=== PATIENT | female | born 1995 | race Hispanic/Latino ===

== ENCOUNTER 2022-04-02 23:53 | Emergency (ER) | payer SELFPAY ==
--- NOTE | ~2022-04-02 | US_ITS ---
US OB <=14 wk fetus w TV DATE: 04/03/2022 03:36 INDICATION: Vaginal bleeding in 4 week gravid patient TECHNIQUE: Real-time imaging via transabdominal and transvaginal approaches COMPARISON: None FINDINGS: The uterus measures approximately 9.3 centers height, 7.2 cm transverse and 4.8 cm AP dimen fabienne. The central endometrial echo complex measures 12 mm AP dimension. No intrauterine gestational sac is detected. The ovaries appear unremarkable. No significant abnormal pelvic fluid collection is noted. IMPRESSION: Prominent central endometrial echo; no intrauterine gestational sac is identified Ectopic is not excluded. Clinical correlation, correlation with beta hCG levels and possibl y follow-up ultrasound may be of benefit. Reviewed, dictated and finalized at [facility]. Reviewed, dictated and finalized at [facility]. IMPRESSION: Prominent central endometrial echo; no intrauterine gestational sac is identified Ectopic is not excluded. Clinical correlation, correlation with beta hCG levels and possibly follow-up ultrasound may be of benefit.
[2022-04-02 23:56] VITALS: BP 124/83; PULSE 105; RESP 16; TEMP 36.7; O2SAT 100
[2022-04-03 01:18] LABS: Basophils Absolute Auto 0.1 K/mm3 (0.0-0.1); Basophils Percent Auto 0.6 % (0.2-1.2); Eosinophils Absolute Auto 0.3 K/mm3 (0-0.3); Eosinophils Percent Auto 2.3 % (0-4.4); Hematocrit 30.1 % (37.0-47.0); Hemoglobin 9.7 g/dL (12.0-15.0); Immature Granulocyte Absolute 0.02 K/mm3 (0.00-0.031); Immature Granulocyte Percent A 0.2 % (0-0.5); Lymphocytes Absolute Auto 3.43 K/mm3 (0.9-3.2); Lymphocytes Percent Auto 29.2 % (18.3-44.2); Mean Corpuscular HGB Conc 32.2 g/dl (32-36); Mean Corpuscular Hemoglobin 20.5 pg (26-34); Mean Corpuscular Volume 63.6 fl (80-100); Mean Platelet Volume 8.8 fl (7.4-10.4); Monocytes Absolute Auto 0.8 K/mm3 (0.1-0.6); Monocytes Percent Auto 7.1 % (2.6-8.5); Neutrophils Absolute Auto 7.1 K/mm3 (1.3-6.7); Neutrophils Percent Auto 60.6 % (45.5-73.1); Platelet Count Result 494 k/mm3 (150-375); Red Blood Count 4.73 M/mm3 (4.2-5.4); Red Cell Distribution Width 20.3 % (11.5-14.5); White Blood Count 11.7 K/mm3 (4.5-10.0)
--- NOTE | 2022-04-03 01:28 | ED.FEMALEGU ---
HPI - Female Genitourinary General Chief complaint: Vaginal Bleeding <Matty Sanchez APRN - Last Filed: 04/03/22 02:18> Stated complaint: Vaginal bleeding, cramping, <Matty Sanchez APRN - Last Filed: 04/03/22 02:18> Time Seen by Provider: 04/03/22 01:18 <Matty Sanchez APRN - Last Filed: 04/03/22 02:18> History of Present Illness HPI Narrative: 27-year-old Nepali-speaking female presents to the emergency room for evaluation of vaginal bleeding. Patient states that she found out yesterday that she was via at home urine test. Patient states today she developed some abdominal cramping and accompanying vaginal bleeding. Patient states she is experiencing multiple dark red clots. Patient denies injury or trauma. Patient denies fever. Patient denies nausea or vomiting. Patient is a G1, P0. <Matty Sanchez APRN - Last Filed: 04/03/22 02:18> Related Data Allergies/Adverse reactions: Allergies Allergy/AdvReac Type Severity Reaction Status Date / Time No Known Allergies Allergy Verified 04/03/22 01:23 <Matty Sanchez APRN - Last Filed: 04/03/22 02:18> Review of Systems Review of Systems: CONSTITUTIONAL: Denies fever, chills, or sweats. EYES: Denies visual changes, redness, or discharge. ENT: Denies rhinorrhea, congestion, sore throat, or otalgia. CARDIOVASCULAR: Denies chest pain, palpitations, or edema. RESPIRATORY: Denies cough or dyspnea. GASTROINTESTINAL: Denies abdominal pain, nausea, vomiting, or diarrhea. GENITOURINARY: Reports vaginal bleeding SKIN: Denies rash or itching. MUSCULOSKELETAL: Denies back pain, joint pain, or myalgia. NEUROLOGIC: Denies headache, numbness, dizziness, or weakness. PSYCHIATRIC: Denies anxiety or depression. <Matty Sanchez APRN - Last Filed: 04/03/22 02:18> Exam Narrative: GENERAL: Well-appearing, well-nourished, and in no acute distress. HEAD: Normocephalic, atraumatic. EYES: PERRLA and EOMI. CHEST: Clear to auscultation. No respiratory distress. No wheezes rales or rhonchi HEART: Regular rate and rhythm. No murmur heard. Normal peripheral pulses. ABDOMEN: Soft, suprapubic tenderness, nondistended, normal active bowel sounds. EXTREMITIES: Normal range of motion. No edema. SKIN: Warm, dry, no rash. NEURO: No focal deficits. Alert and oriented x3. PSYCH: Normal mood and affect. <Matty Sanchez APRN - Last Filed: 04/03/22 02:18> Course Reevaluation(s) Reevaluation #1: Received signout on the patient pending ultrasound <Zacarias Ruelas MD - Last Filed: 04/03/22 05:27> Date: 04/03/22 <Zacarias Ruelas MD - Last Filed: 04/03/22 05:27> Time: 02:55 <Zacarias Ruelas MD - Last Filed: 04/03/22 05:27> Reevaluation #2: Ultrasound returned with no G sac results and plan reviewed with patient and patient and family are comfortable with outpatient plan all questions were answered at time of discharge. <Zacarias Ruelas MD - Last Filed: 04/03/22 05:27> Date: 04/03/22 <Zacarias Ruelas MD - Last Filed: 04/03/22 05:27> Time: 04:53 <Zacarias Ruelas MD - Last Filed: 04/03/22 05:27> Vital Signs Vital signs: Vital Signs Temperature 36.7 C 04/02/22 23:56 Pulse Rate 105 H 04/02/22 23:56 Respiratory Rate 16 04/02/22 23:56 Blood Pressure 124/83 04/02/22 23:56 Pulse Oximetry 100 04/02/22 23:56 Oxygen Delivery Room Air 04/02/22 23:56 Temperature 36.7 C 04/02/22 23:56 Pulse Rate 83 04/03/22 04:29 Respiratory Rate 17 04/03/22 04:29 Blood Pressure 118/65 04/03/22 04:29 Pulse Oximetry 99 04/03/22 04:29 Oxygen Delivery Room Air 04/02/22 23:56 <Matty Sanchez APRN - Last Filed: 04/03/22 02:18> Vital Signs Temperature 36.7 C 04/02/22 23:56 Pulse Rate 105 H 04/02/22 23:56 Respiratory Rate 16 04/02/22 23:56 Blood Pressure 124/83 04/02/22 23:56 Pulse Oximetry 100 04/02/22 23:56 Oxygen Delivery Room Air 04/02/22 23:
[2022-04-03 01:44] VITALS: BP 126/78; PULSE 79; RESP 20; O2SAT 100
[2022-04-03 01:53] LABS: Add Urine Microscopic? YES; Appearance Urine Clear (Clear); Bilirubin Urine Negative (Negative); Blood Urine 3+ (Negative); Color Urine Yellow (Yellow); Glucose Urine UA Negative (Negative); Ketones Urine Negative (Negative); Leukocyte Esterase Ur Negative LEU/UL (Negative); Nitrate Urine Negative (Negative); Protein Urine Negative (Negative); Specific Grav Ur 1.025 (1.001-1.035); Urobilinogen Urine 0.2 mg/dL (<2.0)
[2022-04-03 02:03] LABS: Amorphous Sediment Urine Few; Bacteria Urine Trace /hpf; Mucus Urine Rare /lpf; RBC Urine >75 /hpf (0-2); Squamous Epithelial Cell Urine Occasional /hpf (Few)
[2022-04-03 02:12] LABS: Beta HCG Quantitative 12.02 mIU/ML
[2022-04-03 04:29] VITALS: BP 118/65; PULSE 83; RESP 17; O2SAT 99
== END 2022-04-03 05:08 | disposition home or self-care (01) ==
PROVIDERS: Nurse Practitioner Family; Emergency Provider Emergency Medicine
DX: O03.9 Complete or unspecified spontaneous abortion without complication (principal)
CPT/HCPCS: 36415; 76801; 76817; 81001; 84702; 85025; 85461; 99284